=== PATIENT | male | born 1965 | race African-American/Black ===

== ENCOUNTER → 2018-02-18 | Day surgery (SDC) | payer OTHER ==
[~2018-02-18] MED LIST: PROPOFOL 20 ML ONE
[2018-02-18 14:16] VITALS: BMI 25.6
--- NOTE | 2018-02-18 14:56 | PROC ---
Endoscopy Procedure Endoscopy procedure completed. Please see scanned procedure report.
[2018-02-18 15:02] VITALS: TEMP 98.5
[2018-02-18 15:55] VITALS: BP 136/74; PULSE 66
== END | disposition home or self-care (01) ==
LOC: JASU-ENDO 07:41
PROVIDERS: ATTEND Internal Medicine Gastroenterology
PROC: 0DJD8ZZ Inspection of Lower Intestinal Tract, Via Natural or Artificial Opening Endoscopic (ICD-10-PCS; principal; 2018-02-18 12:00)
DX: Z12.11 Encounter for screening for malignant neoplasm of colon (principal); K64.8 Other hemorrhoids